=== PATIENT | female | born 1925 | race Caucasian/White ===

== ENCOUNTER → 2016-11-21 | Outpatient (CLI) | payer MEDICARE ==
[~2016-11-21] MED LIST: NEXIUM40 MG PO
== END | disposition home or self-care (01) ==
LOC: US 10:00
DX: M17.12 Unilateral primary osteoarthritis, left knee (principal); R60.0 Localized edema; M71.22 Synovial cyst of popliteal space [Baker], left knee; M79.89 Other specified soft tissue disorders

== ENCOUNTER 2016-12-26 18:53 | Emergency (ER) | payer MEDICARE ==
[~2016-12-26] VITALS: Wt 60.8 kg
[2016-12-26 18:55] VITALS: BP 141/66
[2016-12-26 19:29] LABS: BASO % 0.6 % (0.0-1.0); EOS # 0.1 10*3/uL (0.0-0.4); HEMATOCRIT 36.8 % (37.0-47.0); HEMOGLOBIN 12.2 g/dl (12.0-16.0); LYMPH # 1.1 10*3/uL (1.3-4.4); LYMPH % 22.6 % (27.0-41.0); MEAN CORPUSCULAR HGB 29.8 pg (27.0-31.0); MEAN CORPUSCULAR HGB CONC 33.2 g/dl (33.0-37.0); MEAN PLATELET VOLUME 9.5 fl (9.6-12.3); MONO # 0.3 10*3/uL (0.1-1.0); MONO % 6.7 % (3.0-9.0); NEUT # 3.4 10*3/uL (2.3-7.9); NEUT % 68.9 % (47.0-73.0); PLATELET COUNT AUTOMATED 109 10*3/uL (130-400); RED BLOOD COUNT 4.09 10*6/uL (4.10-5.10); RED CELL DISTRI WIDTH 13.2 % (0-14.5)
[2016-12-26 19:39] LABS: INTERNATIONAL NORM RATIO 1.1 (2.0-3.5); PROTHROMBIN TIME 11.3 SECONDS (9.0-12.4)
[2016-12-26 19:42] LABS: POTASSIUM 4.1 mmol/L (3.5-5.1)
[2016-12-26] MEDS ORDERED: KEFLEX500 M1 PO (20:07)
== END 2016-12-26 20:23 | disposition home or self-care (01) ==
LOC: ED 18:53
PROVIDERS: Emergency Medicine Emergency Medical Services
DX: S51.001A Unspecified open wound of right elbow, initial encounter (principal); S40.011A Contusion of right shoulder, initial encounter; S50.01XA Contusion of right elbow, initial encounter; Z88.8 Allergy status to other drugs, medicaments and biological substances; W22.8XXA Striking against or struck by other objects, initial encounter; Y93.89 Activity, other specified; Y92.89 Other specified places as the place of occurrence of the external cause; Y99.8 Other external cause status

== ENCOUNTER → 2016-12-28 | Outpatient (CLI) | payer MEDICARE ==
[~2016-12-28] MED LIST changes: +KEFLEX500 M1 PO
--- NOTE | ~2016-12-28 | WRIGHTHP ---
[place], [place] PATIENT HISTORY AND PHYSICAL EXAM NAME: JOSHUA GUAMAN [facility] #: [id number] UNIT #: [id number] ROOM: DOCTOR: MICHELLE OrtizEMILIE BIRTHDATE: [birth year] DOS: 12/28/2016 CHIEF COMPLAINT AND SKIN: Open wound of the right forearm and elbow. NEW PATIENT EVALUATION CHIEF COMPLAINT: Open wound of the right forearm and elbow. HISTORY OF PRESENT ILLNESS: This is an 89-year-old female, who suffered a very large skin tear of the right forearm all the way up to the elbow 2 days ago when she was trying to help her sister get out of bed to use a bedside commode. Her sister fell against her and the patient injured her arm by when she fell against the wooden cabinet and suffered a very large skin tear and extensive bruising of the forearm and elbow. She went to the Emergency Room Department for evaluation where it was noted that her wound had been bleeding. She is on aspirin 81 twice a day. She was evaluated in the ER and was given tetanus shot. Had an x-ray, which showed no fracture, malalignment or any bony abnormalities. She was given a prescription for Keflex to go home with, 500 twice a day, and was asked to follow up in the Wound Clinic. A dressing was applied, Adaptic, and the patient was sent home. PAST MEDICAL HISTORY: Significant for the following: She has a history of breast lumpectomy with hysterectomy, hernia repair and dropped bladder repair surgery. She does not have any cardiac or pulmonary issues or problems, or diabetes. ALLERGIES: LISINOPRIL and LOSARTAN. SOCIAL HISTORY: She does not smoke or drink. She lives with her sister, who has severe Parkinson's disease and she helps take care of her sister. FAMILY HISTORY: Significant for diabetes in her siblings and heart disease in her mother and cancer in her father and siblings. SOCIAL HISTORY: She has never smoked and she is a . CURRENT MEDICATIONS: As follows: Her medications are vitamin D 2000 units once a day, B complex vitamins daily, aspirin 81 twice a day, Zocor 20 daily, Zantac 150 daily, metoprolol 50 p.o. b.i.d. REVIEW OF SYSTEMS: She denies fevers, chills. She denies any pain at all with the wound. There is no purulent drainage. No weight gain or weight loss. No headaches or dizziness. No vision changes, no tinnitus, changes in hearing, pain in the ear. No rhinorrhea, or epistaxis. No oral pain or gum problems. No sore throat or difficulty. She denies any shortness of breath, chest pain or palpitations or any nausea, vomiting, abdominal pains, or diarrhea. No urinary complaints. She does have some arthritic pain in her left knee. No syncope or weakness. No depression, anxiety, sleep disturbances reported. PHYSICAL EXAMINATION: [place], [place] PATIENT HISTORY AND PHYSICAL EXAM NAME: JOSHUA GUAMAN UNIT #: [id number] ROOM: DOCTOR: EMILIE MARTINEZ M.D. BIRTHDATE: [birth year] GENERAL: This is an elderly female, who appears younger than her stated age, well-developed and well-nourished, in no acute distress, pleasant and cooperative, slightly pale to examination. VITAL SIGNS: She is afebrile, pulse of 80, respirations 18, blood pressure is 104/58. HEENT: Oropharynx is clear. Extraocular movements are intact. NECK: Supple. LUNGS: Clear to auscultation. CARDIOVASCULAR: S1, S2, regular rate and rhythm. ABDOMEN: Soft and nontender. EXTREMITIES: She has trace edema bilaterally. No calf tenderness with multiple superficial varicosities noted of her lower extremities. She has a fairly large right forearm skin tear that extends up to above the elbow. A lot of the area has been bruised markedly, but there is only 10% of the area which I believe is open at this time. The measurements are 6.5 x 6 x 0.1, but that includes part of the compromise tissue from the extensive bruising and injury, but the actual open area is much smaller than that. There is a smaller open area at the elbow, which is measuring 1 x 1.6 x 0.1. It does bleed fairly easily. There is some epidermis and dermis that is just already hanging into the wound that is not attached so this area was debrided selectively and both of these wounds I would estimate the actual area debrided is 5% of the wound. Forceps and scissors were utilized just to remove some of the nonviable epidermis and dermis that was just hanging there. There was moderate bleeding that was controlled with pressure. Post-debridement measurements are unchanged. Cetacaine spray was used for topical anesthesia. LABORATORY DATA: Show sodium of 144, potassium 4.1, chloride 108, BUN is 22, creatinine is 1.15. INR is 1.1. White count was 5, hemoglobin is 12, platelets are 109, slightly low. X-ray shows no acute fracture or dislocation, but osteoarthritis is noted. ASSESSMENT AND PLAN: Fairly large injury to the forearm with skin tear, we will use a Silvadene for the open areas and Adaptic and have her change it daily. She is going to finish off her antibiotics and follow back up in the Wound Clinic in one week. The actual open area maybe larger as some of the tissue does appear compromised from all of the extensive trauma, so we will watch this area carefully. Follow up in 1 week. She is to report to the Wound Clinic if there are any issues with her wounds. [place], [place] PATIENT HISTORY AND PHYSICAL EXAM NAME: JOSHUA GUAMAN UNIT #: [id number] ROOM: DOCTOR: EMILIE MARTINEZ M.D. BIRTHDATE: [birth year] EMILIE MARTINEZ MD CM:HISPHYS:PATIENT HISTORY AND PHYSICAL EXAMINATION 112 EMILIE MARTINEZ M.D. 12/28/16 1121 interface
== END ==
LOC: WOUNDCARE 07:33
DX: S51.811A Laceration without foreign body of right forearm, initial encounter (principal); S50.01XA Contusion of right elbow, initial encounter; I48.91 Unspecified atrial fibrillation; X58.XXXA Exposure to other specified factors, initial encounter; Y93.89 Activity, other specified; Y92.89 Other specified places as the place of occurrence of the external cause; Y99.8 Other external cause status

== ENCOUNTER → 2017-01-04 | Outpatient (CLI) | payer MEDICARE ==
--- NOTE | ~2017-01-04 | PR ---
[place], [place] PROGRESS NOTE NAME: JOSHUA GUAMAN [facility] #: [id number] UNIT #: [id number] ROOM: DOCTOR: MICHELLE OrtizEMILIE BIRTHDATE: [birth year] DOS: 01/04/2017 CHIEF COMPLAINT: Open wound of the right forearm and elbow. HISTORY OF PRESENT ILLNESS: This is an 89-year-old female, who was seen for the first time in the Wound Clinic last week for a very large skin tear of the right forearm, that also went up to the elbow. It was quite large when she came last week. She is on aspirin for anticoagulation. There was quite a bit of extensive bruising, a contusion was noted and there was a fair amount of bleeding. There was some nonviable tissue that was debrided last week. She was given a script for Silvadene and Adaptic to be utilized. She comes in today without any complaints. The wound appears healed quite nicely. She has no pain. There are no fevers and no chills. There is still extensive bruising to the forearm and the elbow area. There is some slight swelling also noted where the injury occurred and where the wound was, but the wound itself is healed. SOCIAL HISTORY: She lives with her sister, who she helps take care for her. Her sister has been failing in her health and is going to be going into hospice soon. The patient does not smoke and she says she is eating well. PHYSICAL EXAMINATION: VITAL SIGNS: She is afebrile, pulse of 64, respirations 16 and blood pressure is 120/50. INTEGUMENTARY: The wound appears healed. There is a small scab in 1 of the wounds, but all the other wounds appear healed at this point. There is, what appears to be, hematoma around the injury. It is not tender, it is not cellulitic and measuring approximately 3 inches in length and width. ASSESSMENT AND PLAN: Large skin tear. The wound appears healed. From the wound care standpoint, we will discharge the patient. I did, however, discuss with her about the swelling of the area where she had injured her forearm and did ask her to watch for any signs of infection with this. In the meantime, she can make some warm compresses a few times a day to see if this will help. Also, she can use Aquaphor for any of the scabbed areas to help keep them moisture. In the meantime, we will discharge the patient from the Wound Clinic. I did mention, however that if she had any concerns with the swelling, she should contact her primary care physician. [place], [place] PROGRESS NOTE NAME: JOSHUA GUAMAN UNIT #: [id number] ROOM: DOCTOR: EMILIE MARTINEZ M.D. BIRTHDATE: [birth year] EMILIE MARTINEZ MD CM:EDUARDA [id number] EMILIE MARTINEZ M.D. 01/05/17249 interface
== END ==
LOC: WOUNDCARE 02:43
DX: S51.811D Laceration without foreign body of right forearm, subsequent encounter (principal); S50.01XD Contusion of right elbow, subsequent encounter; S40.811D Abrasion of right upper arm, subsequent encounter; I48.91 Unspecified atrial fibrillation; Z79.01 Long term (current) use of anticoagulants; X58.XXXD Exposure to other specified factors, subsequent encounter

== ENCOUNTER → 2017-01-22 | Outpatient (CLI) | payer MEDICARE | END | disposition home or self-care (01) | LOC: RAD 11:35 | DX: M51.36 Other intervertebral disc degeneration, lumbar region (principal); M47.897 Other spondylosis, lumbosacral region; M54.89 Other dorsalgia ==

== ENCOUNTER → 2017-05-15 | Outpatient (CLI) | payer MEDICARE ==
[2017-05-15 10:11] LABS: BASO % 0.5 % (0.0-1.0); EOS # 0.1 10*3/uL (0.0-0.4); EOS % 1.6 % (1.0-4.0); HEMATOCRIT 36.3 % (37.0-47.0); HEMOGLOBIN 12.2 g/dl (12.0-16.0); LYMPH % 22.4 % (27.0-41.0); MEAN CORPUSCULAR HGB 30.6 pg (27.0-31.0); MEAN CORPUSCULAR HGB CONC 33.6 g/dl (33.0-37.0); MEAN PLATELET VOLUME 10.4 fl (9.6-12.3); MONO # 0.3 10*3/uL (0.1-1.0); NEUT % 69.3 % (47.0-73.0); PLATELET COUNT AUTOMATED 107 10*3/uL (130-400); RED BLOOD COUNT 3.99 10*6/uL (4.10-5.10); RED CELL DISTRI WIDTH 13.2 % (0-14.5); WHITE BLOOD COUNT 4.3 10*3/uL (4.8-10.8)
[2017-05-15 10:19] LABS: ALBUMIN 3.7 gm/dl (3.1-4.5); CREATININE 1.06 mg/dL (0.55-1.02); POTASSIUM 3.7 mmol/L (3.5-5.1); TOTAL PROTEIN 7.1 gm/dL (6.4-8.2)
[2017-05-15 10:28] LABS: THYROID STIM HORMONE (HS) 1.67 uIU/ml (0.358-4.75)
== END | disposition home or self-care (01) ==
LOC: LAB 09:29
PROVIDERS: Internal Medicine
DX: I25.10 Atherosclerotic heart disease of native coronary artery without angina pectoris (principal); E78.00 Pure hypercholesterolemia, unspecified; I10 Essential (primary) hypertension; E55.9 Vitamin D deficiency, unspecified

== ENCOUNTER 2017-07-24 07:57 | Inpatient (IN) | payer MEDICARE ==
[~2017-07-24] VITALS: Ht 162.5 cm; Wt 61.0 kg
[2017-07-24] VITALS (8 sets, daily range): BP systolic 130–160; BP diastolic 57–82
--- NOTE | ~2017-07-24 | CON ---
[place], [place] REPORT OF CONSULTATION NAME: JOSHUA GUAMAN UNIT #: [id number] ROOM: 402 DOCTOR: EDUARDO DALE MD BIRTHDATE: [birth year] DOS: 07/24/2017 HISTORY OF PRESENT ILLNESS: This is a very delightful 89-year-old -[place] lady who is of sound mind and lives at home. 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 She has coronary artery disease and 8 years ago couple of stents were deployed by me and I do not have details of this procedure. She has had essential hypertension, but has never had a stroke, heart failure, COPD, emphysema, kidney problems, but had breast cancer in the remote past, urinary bladder prolapse and has had hysterectomy, bilateral cataract extraction with lens implantation and osteoarthritis. She had gone to see Dr. Yung and an ECG demonstrated atrial fibrillation. She did not have any chest pain, breathing difficulty, palpitations. She was not aware of her heart beating irregularly. There had not been any PND, orthopnea, or swelling of the lower extremities. She is pretty active for her age and has not complained of any dyspnea on exertion and no neurological symptoms. She has not had any blood in the stools or blood in the urine. Her stools are of normal color. HOME MEDICATIONS: Include aspirin 81 daily, cholecalciferol, metoprolol 50 b.i.d., ranitidine 150 mg daily, simvastatin 20 at bedtime, vitamin E with zinc and copper and vitamin B complex. PHYSICAL EXAMINATION: GENERAL: Reveals a patient who is very pleasant, alert, oriented. She is very comfortable. She is walking around. Complexion is fine. There is no thyromegaly or finger clubbing. VITAL SIGNS: Pulse is regular at 76 beats per minute, blood pressure 140/70. NECK: JVP is normal. There is no carotid bruit. HEART: There is no cardiomegaly. Auscultation did not reveal any rub. There is a grade 1/6 early peaking systolic murmur over the aortic area. Aortic sound is of normal intensity. EXTREMITIES: She has palpable pedal pulses and no edema of the lower extremities. RESPIRATORY: Lungs are clear to percussion and auscultation. ABDOMEN: Liver is not enlarged. There is no abdominal bruit. An ECG done in Dr. Yung's office demonstrated atrial fibrillation with a ventricular rate of 98 beats per minute and no acute ST-T wave changes. ECG done today showed normal sinus rhythm and essentially a normal pattern. Troponin I levels have been normal. Hemoglobin 12.4 mg/dL, potassium 4.2, magnesium 2.2. IMPRESSION: Paroxysmal atrial fibrillation. The patient is back in normal sinus rhythm suggesting this is just paroxysmal dysrhythmia. The most worrisome complication is of course stroke at this age. Therefore, your decision to start the patient on Xarelto 15 mg daily is very appropriate. At this time, I do not recommend use of any antiarrhythmic drugs. If atrial [place], [place] REPORT OF CONSULTATION NAME: JOSHUA GUAMAN UNIT #: [id number] ROOM: 402 DOCTOR: CHITO GREENBERG,EDUARDO BIRTHDATE: [birth year] fibrillation recurs, then I think one may want to put her on low dose of propafenone. An echocardiogram should be done to assess LV systolic function and of course left atrial size. A Lexiscan Cardiolite study will exclude any significant coronary artery disease, although she certainly has this problem, although not symptomatic. I thank you for this consult. EDUARDO DALE MD CM:CONSTR:REPORT OF CONSULTATION 3325 07/24/17 4164 interface
[2017-07-24 08:57] LABS: BASO % 0.4 % (0.0-1.0); EOS # 0.1 10*3/uL (0.0-0.4); EOS % 1.3 % (1.0-4.0); HEMATOCRIT 37.2 % (37.0-47.0); HEMOGLOBIN 12.4 g/dl (12.0-16.0); LYMPH # 0.7 10*3/uL (1.3-4.4); LYMPH % 13.5 % (27.0-41.0); MEAN CELL VOLUME 89.6 fl (81.0-99.0); MEAN CORPUSCULAR HGB 29.9 pg (27.0-31.0); MEAN CORPUSCULAR HGB CONC 33.3 g/dl (33.0-37.0); MEAN PLATELET VOLUME 9.7 fl (9.6-12.3); MONO # 0.3 10*3/uL (0.1-1.0); NEUT # 4.3 10*3/uL (2.3-7.9); NEUT % 78.4 % (47.0-73.0); PLATELET COUNT AUTOMATED 115 10*3/uL (130-400); RED BLOOD COUNT 4.15 10*6/uL (4.10-5.10); RED CELL DISTRI WIDTH 13.5 % (0-14.5); WHITE BLOOD COUNT 5.5 10*3/uL (4.8-10.8)
[2017-07-24 09:07] LABS: ACT PARTIAL THROMBO TIME 26.7 SECONDS (20.8-31.5); INTERNATIONAL NORM RATIO 1.1 (2.0-3.5)
[2017-07-24 09:29] LABS: ALBUMIN 3.7 gm/dl (3.1-4.5); ALKALINE PHOSPHATASE 69 U/L (45-117); BUN 21 mg/dl (7-24); CHLORIDE 107 mmol/L (98-107); CREATININE 1.12 mg/dL (0.55-1.02); POTASSIUM 4.2 mmol/L (3.5-5.1); SGOT/AST 27 IU/L (3-35); SGPT/ALT 35 U/L (12-78); SODIUM 141 mmol/L (136-145); TOTAL PROTEIN 6.8 gm/dL (6.4-8.2)
[2017-07-24 09:44] LABS: TROPONIN I < 0.015 ng/ml (<0.045)
[2017-07-24] MEDS ORDERED: LOPRESSOR50 M1 PO (09:44)
[2017-07-24] MEDS ORDERED: ZANTAC 150150 MG PO (09:46)
[2017-07-24] MEDS ORDERED: ZOCOR20 MG PO (09:47)
[2017-07-24] MEDS ORDERED: ASPIRIN CHEWABL81 MG PO (09:49)
[2017-07-24] MEDS ORDERED: VITAMIN D-32000 UNIT PO (09:50)
[2017-07-24] MEDS ORDERED: B-COMPLEX WITH1 EAC2 PO (09:52)
[2017-07-24] MEDS ORDERED: PRESERVISION A1 EAC1 PO (09:53)
--- NOTE | 2017-07-24 09:58 | NUR ---
A 89, admitted to , under the services of PAVEL Mendez MD with a diagnosis of AFIB. Chief complaint is AFIB OBSERVED BY PCP. Patient arrived via stretcher from ER. Monitor applied. Initial assessment completed. Vital signs taken and recorded. PAVEL MENDEZ MD notified of admission to the unit. Orders received. See assessment for past medical history, medications and allergies. Patient and/or family oriented to unit. [facility] visitation policy reviewed. Clothing/patient valuable form completed. WALTER ALEX
--- NOTE | 2017-07-24 11:11 | NUR ---
DR. DALE WAS CALLED FOR CONSULT FOR NEW AFIB. STATED DR VAZQUEZ PREVIOUSLY NOTIFIED HIM AND HE WILL SEE THE PT LATTER THIS EVENING.
--- NOTE | 2017-07-24 21:31 | NUR ---
DR GARCIA AWARE OF PATIENT REQUESTING TO HAVE PRESERVISION MEDICATION STARTED
[2017-07-25] VITALS: BP 110/53
--- NOTE | 2017-07-25 00:42 | NUR ---
24 HR chart check completed.
--- NOTE | 2017-07-25 02:59 | NUR ---
PATIENT RESTING IN BED WITH NO NEEDS MADE. NO S/S OF DISTRESS. BED IN LOWEST POSITION, CALL LIGHT IN [facility]
[2017-07-25 04:00] VITALS: BP 119/73
[2017-07-25 07:24] LABS: BASO % 0.5 % (0.0-1.0); EOS # 0.1 10*3/uL (0.0-0.4); EOS % 2.6 % (1.0-4.0); HEMATOCRIT 38.2 % (37.0-47.0); HEMOGLOBIN 12.7 g/dl (12.0-16.0); LYMPH % 24.2 % (27.0-41.0); MEAN CELL VOLUME 90.5 fl (81.0-99.0); MEAN CORPUSCULAR HGB 30.1 pg (27.0-31.0); MEAN CORPUSCULAR HGB CONC 33.2 g/dl (33.0-37.0); MONO # 0.4 10*3/uL (0.1-1.0); MONO % 8.8 % (3.0-9.0); NEUT # 2.7 10*3/uL (2.3-7.9); NEUT % 63.7 % (47.0-73.0); PLATELET COUNT AUTOMATED 111 10*3/uL (130-400); RED BLOOD COUNT 4.22 10*6/uL (4.10-5.10); RED CELL DISTRI WIDTH 13.5 % (0-14.5); WHITE BLOOD COUNT 4.2 10*3/uL (4.8-10.8)
[2017-07-25 07:55] LABS: ALBUMIN 3.4 gm/dl (3.1-4.5); CREATININE 1.07 mg/dL (0.55-1.02); PHOSPHOROUS 3.1 mg/dL (2.5-4.9); POTASSIUM 4.1 mmol/L (3.5-5.1); TOTAL PROTEIN 6.7 gm/dL (6.4-8.2)
[2017-07-25 07:59] LABS: THYROID STIM HORMONE (HS) 1.51 uIU/ml (0.358-4.75)
[2017-07-25 08:00] VITALS: BP 132/55
[2017-07-25 08:13] LABS: INTERNATIONAL NORM RATIO 1.1 (2.0-3.5)
--- NOTE | 2017-07-25 08:30 | NUR ---
Framing And Hanging in to talk to patient. Patient states lives at HOME ALONE with . IN 3 [address]ORY, 13 ROOM HOUSE. USES ALL [employer]OR[address]!. There are 20 steps in the home. Physician: DR NINA Pharmacy: [facility] [place] Home health services: NONE Patient's level of ADLs: MINIMAL ASSIST Patient has working utilities: YES DME: NONE Follow-up physician's appointment after d/c: PREFERS TO MAKE HER OWN APPT Does patient want to access PORTAL?: Discharge plan . OSCAR VARNER DRIVES OR SHE TAKES A TAXI. BROTHER LIVES RIGHT BEHIND HER. KEYUR CHECKS ON HER FREQUENTLY.
[2017-07-25 09:02] LABS: VITAMIN D, 25-HYDROXY 34.7 ng/mL (30-100)
--- NOTE | 2017-07-25 12:00 | NUR ---
INFORMED CONSENT SIGNED FOR LEXISCAN WITH DR NINA. RESTING EKG NSR WITH A HR OF 76, AND A BP OF 124/58. POX 99% WITH CLEAR LUNGS BILATERALLY. COMPLETED ONE MINUTE OF A LEXISCAN PROTOCOL RECEIVING LEXISCAN 0.4 MG OVER 10 SECONDS. NO SYMPTOMS REPORTED. HAD A PEAK HR OF 106, WITH A BP OF 132/58. LAST RECOVERY HR OF 102, WITH A BP OF 134/64.
[2017-07-25 16:00] VITALS: BP 162/79
[2017-07-25] MEDS ORDERED: XARE15TA PO (17:08)
--- NOTE | 2017-07-25 18:17 | NUR ---
Discharge instructions reviewed with patient/family. Patient receptive and verbalizes understanding. Follow-up care arranged. Written instructions given to patient/family. GLEN COX
== END 2017-07-25 18:17 | disposition home or self-care (01) | DRG 309 ==
LOC: ED 07:57 → 4E 08:48 → EDHOLD 08:48 → 4E 09:01
PROVIDERS: Emergency Medicine; Hospitalist; ADMIT Internal Medicine
PROC: 3E073KZ Introduction of Other Diagnostic Substance into Coronary Artery, Percutaneous Approach (ICD-10-PCS; principal; 2017-07-25)
PROC: 4A02XM4 Measurement of Cardiac Total Activity, External Approach (ICD-10-PCS; principal; 2017-07-25)
DX: I48.0 Paroxysmal atrial fibrillation (principal); N39.0 Urinary tract infection, site not specified; D69.6 Thrombocytopenia, unspecified; E83.41 Hypermagnesemia; R73.9 Hyperglycemia, unspecified; M19.90 Unspecified osteoarthritis, unspecified site; I10 Essential (primary) hypertension; I25.10 Atherosclerotic heart disease of native coronary artery without angina pectoris; Z96.1 Presence of intraocular lens; Z60.2 Problems related to living alone; Z66 Do not resuscitate; Z51.5 Encounter for palliative care; Z98.41 Cataract extraction status, right eye; Z98.42 Cataract extraction status, left eye; Z95.5 Presence of coronary angioplasty implant and graft; Z79.82 Long term (current) use of aspirin; Z82.49 Family history of ischemic heart disease and other diseases of the circulatory system; Z85.3 Personal history of malignant neoplasm of breast; Z90.89 Acquired absence of other organs; Z90.710 Acquired absence of both cervix and uterus; Z79.899 Other long term (current) drug therapy; Z88.8 Allergy status to other drugs, medicaments and biological substances